=== PATIENT | male | born 1950 | race Caucasian/White ===

== ENCOUNTER 2017-03-07 12:13 | Observation (INO) | payer OTHER ==
[~2017-03-07] VITALS: Ht 172.7 cm; Wt 81.6 kg
[~2017-03-07 12:13] MED LIST: AMIT10TA13; ATOR10 PO; LOSA25TA31 PO; ZOLP10TA3
[2017-03-07 12:18] VITALS: BP 111/60; PULSE 66; RESP 16; TEMP 98.4; O2SAT 97
[2017-03-07] MEDS ORDERED: ASPI81CH7 CHEW (12:46)
[2017-03-07] MEDS ORDERED: LOSA100T PO (12:46)
[2017-03-07] MEDS ORDERED: TAMS0.4C4 PO (12:46)
[2017-03-07] MEDS ORDERED: SODIUM CHLOR 0.9% 1000 ML INJ 1,000 ML IV SCH (12:47)
--- NOTE | 2017-03-07 12:51 | PD ---
HPI Chief Complaint: Abdominal Pain Time Seen by Provider: 12:38 Travel History International Travel<30 days: No Contact w/Intl Traveler<30days: [place] Country Traveled to: [place] Traveled to known affect area: No History of Present Illness HPI 66-year-old male with history of hypertension presents for evaluation of right upper quadrant abdominal pain. Symptoms started 5 days ago. The pain is a sharp pain which is constant but it is worse with meals. Pepto-Bismol seems to help with his pain. He endorses nausea, chills, sweats. He denies vomiting, diarrhea, chest pain or shortness of breath. He has never had this sort of pain before. He has no other Complaints at this time. [facility] Past Medical History Cancer: Yes (PROSTATE WITH RADIATION) High Cholesterol: Yes Hypertension: Yes Migraines: Yes Social History Alcohol Use: No Tobacco Use: No Substance Use: No Allergies-Medications (Allergen,Severity, Reaction): Coded Allergies: No Known Allergies (Verified , 03/07/17) Reported Meds & Prescriptions Reported Meds & Active Scripts Active Reported Aspirin Children's (Aspirin) 81 Mg Chew 81 Mg CHEW DAILY Tamsulosin (Tamsulosin HCl) 0.4 Mg Cap 0.4 Mg PO HS Losartan (Losartan Potassium) 100 Mg Tab 100 Mg PO DAILY Review of Systems Except as stated in HPI: all other systems reviewed are Neg Physical Exam Narrative GENERAL: Well-developed well-nourished male in no acute distress SKIN: Warm and dry. HEAD: Atraumatic. Normocephalic. EYES: Pupils equal and round. No scleral icterus. No injection or drainage. ENT: No nasal bleeding or discharge. Mucous membranes pink and moist. NECK: Trachea midline. No JVD. CARDIOVASCULAR: Regular rate and rhythm. No murmur appreciated. RESPIRATORY: No accessory muscle use. Clear to auscultation. Breath sounds equal bilaterally. GASTROINTESTINAL: Abdomen soft, focal right upper quadrant tenderness to palpation without guarding, positive Trujillo's. No epigastric or left upper quadrant tenderness. Normoactive bowel sounds in all 4 quadrants. MUSCULOSKELETAL: No obvious deformities. No clubbing. No cyanosis. No edema. NEUROLOGICAL: Awake and alert. No obvious cranial nerve deficits. Motor grossly within normal limits. Normal speech. PSYCHIATRIC: Appropriate mood and affect; insight and judgment normal. Data Data Last Documented VS Vital Signs Date Time Temp Pulse Resp B/P Pulse Ox O2 Delivery O2 Flow Rate FiO2 03/07/17 13:54 51 16 103/62 98 Room Air 03/07/17 12:18 98.4 Orders Complete Blood Count With Diff (03/07/17 12:47) Comprehensive Metabolic Panel (03/07/17 12:47) Lipase (03/07/17 12:47) Urinalysis - C+S If Indicated (03/07/17 12:47) Us Abdomen Gallbladder (03/07/17 ) Morphine Inj (Morphine Inj) (03/07/17 13:00) Ondansetron Inj (Zofran Inj) (03/07/17 13:00) Sodium Chlor 0.9% 1000 Ml Inj (Ns 1000 M (03/07/17 12:47) Electrocardiogram (03/07/17 12:47) Al-Mag Hy-Si 40-40-4 Mg/Ml Liq (Mag-Al P (03/07/17 13:00) Lidocaine 2% Viscous (Xylocaine 2% Visco (03/07/17 13:00) Ckmb (Isoenzyme) Profile (03/07/17 12:47) Troponin I (03/07/17 12:47) Admit Order (Ed Use Only) (03/07/17 14:41) NPO (03/07/17 14:41) Piperacil-Tazo 3.375 Gm Premix (Zosyn 3. (03/07/17 14:45) D5-1/2 Ns + Kcl 20 Meq Inj (D5-1/2 Ns + (03/07/17 14:45) Labs Laboratory Tests Test 03/07/17 13:08 White Blood Count 11.2 TH/MM3 Red Blood Count 4.92 MIL/MM3 Hemoglobin 14.5 GM/DL Hematocrit 41.7 % Mean Corpuscular Volume 84.9 FL Mean Corpuscular Hemoglobin 29.4 PG Mean Corpuscular Hemoglobin 34.7 % Concent Red Cell Distribution Width 12.1 % Platelet Count 203 TH/MM3 Mean Platelet Volume 7.4 FL Neutrophils (%) (Auto) 84.1 % Lymphocytes (%) (Auto) 5.8 % Monocytes (%) (Auto) 8.2 % Eosinophils (%) (Auto) 0.4 % Basophils (%) (Auto) 1.5 % Neutrophils # (Auto) 9.5 TH/MM3 Lymphocytes # (Auto) 0.6 TH/MM3 Monocytes # (Auto) 0.9 TH/MM3 Eosinophils # (Auto) 0.0 TH/MM3 Basophils # (Auto) 0.2 TH/MM3 CBC Comment DIFF FINAL Differential Comment Urine Collection Type CLEAN CATCH Urine Color NEHEMIAH Urine Turbidity CLEAR Urine pH 6.0 Urine Specific [place] 1.021 Urine Protein NEG mg/dL Urine Glucose (UA) NEG mg/dL Urine Ketones 15 mg/dL Urine Occult Blood NEG Urine Nitrite NEG Urine Bilirubin NEG Urine Leukocyte Esterase NEG Urine WBC 0-2 /hpf Urine Squamous Epithelial 0-5 /hpf Cells Urine Amorphous Sediment FEW Microscopic Urinalysis Comment CULT NOT INDICATED Urine Collection Time 1308 Sodium Level 138 MEQ/L Potassium Level 4.4 MEQ/L Chloride Level 105 MEQ/L Carbon Dioxide Level 24.3 MEQ/L Anion Gap 9 MEQ/L Blood Urea Nitrogen 17 MG/DL Creatinine 1.40 MG/DL Estimat Glomerular Filtration 51 ML/MIN Rate Random Glucose 139 MG/DL Calcium Level 8.8 MG/DL Total Bilirubin 1.0 MG/DL Aspartate Amino Transf 56 U/L (AST/SGOT) Alanine Aminotransferase 124 U/L (ALT/SGPT) Alkaline Phosphatase 161 U/L Total Creatine Kinase 38 U/L Troponin I LESS THAN 0.02 NG/ML Total Protein 7.5 GM/DL Albumin 3.6 GM/DL Lipase 174 U/L MDM Medical Decision Making Medical Screen Exam Complete: Yes Emergency Medical Condition: Yes Medical Record Reviewed: Yes Differential Diagnosis Symptomatic cholelithiasis, cholecystitis, choledocholithiasis, aortic dissection, pancreatitis, peptic ulcer disease, renal stone Narrative Course 66-year-old male presents with 5 days of right upper quadrant abdominal pain, worse with meals, nausea, chills and diaphoresis. On examination he has focal right upper quadrant tenderness to palpation without guarding. His Idol signs are stable. Plan is for basic lab work, right upper quadrant ultrasound. he will be given a GI cocktail, IV fluids, Zofran and morphine. The patient's lab work reveals elevated liver enzymes, ALP. White count 11.3. Creatinine/BUN are slightly elevated from baseline, likely secondary to decreased appetite/dehydration. Ultrasound reveals: CONCLUSION: 1. Distended gallbladder with mild wall thickening and sludge. No gallstones are visualized. 2. Remainder of the examination is within normal limits. Dr. Patel discussed these findings with surgeon certified professional controller Dr. Crystal who would like the patient admitted to his service, npo. Upon reevaluation the patient feels significantly improved. Diagnosis Primary Impression: Acute cholecystitis Admitting Information Admitting Physician Requests: Admit Jordan Baker Mar 07, 2017 12:51
[2017-03-07] MEDS ORDERED: ONDANSETRON HCL 4 MG/2 ML VIAL IVP ONE (13:00)
[2017-03-07] MEDS ORDERED: LIDOCAINE VISCOUS 2% SOLN 15 ML UDC PO ONE (13:00)
[2017-03-07] MEDS ORDERED: MORPHINE SULFATE 4 MG/ML INJ IV PUSH ONE (13:00)
[2017-03-07] MEDS ORDERED: ALUMINUM/MAGNESIUM/SIMETH 30 ML CUP PO ONE (13:00)
[2017-03-07 13:16] LABS: AUTOMATED NEUTROPHIL # 9.5 TH/MM3 (1.8-7.7); BASOPHIL # 0.2 TH/MM3 (0-0.2); BASOPHIL % 1.5 % (0.0-2.0); EOSINOPHIL % 0.4 % (0.0-4.0); HEMATOCRIT 41.7 % (39.0-51.0); LYMPH % 5.8 % (9.0-44.0); LYMPHOCYTE # 0.6 TH/MM3 (1.0-4.8); MEAN CELL VOLUME 84.9 FL (80.0-100.0); MEAN CORPUSCULAR HEMOGLOBIN 29.4 PG (27.0-34.0); MEAN CORPUSCULAR HGB CONC 34.7 % (32.0-36.0); MONO % 8.2 % (0.0-8.0); NEUT % 84.1 % (16.0-70.0); PLATELET COUNT 203 TH/MM3 (150-450); RED BLOOD COUNT 4.92 MIL/MM3 (4.50-5.90); RED CELL DISTRIBUTION WIDTH 12.1 % (11.6-17.2); WHITE BLOOD COUNT 11.2 TH/MM3 (4.0-11.0)
[2017-03-07 13:17] LABS: BLOOD, URINE NEG (NEG); GLUCOSE,URINE NEG (NEG); KETONE, URINE 15 mg/dL (NEG); NITRITE,URINE NEG (NEG)
[2017-03-07 13:22] LABS: METHOD OF COLLECTION CLEAN CATCH
[2017-03-07 13:23] LABS: URINE COLOR AMBER (YELLW/STRAW)
[2017-03-07 13:24] LABS: COMMENT (UR) CULT NOT INDICATED; COMMENT2 (UR) MUCOUS PRESENT; CULTURE IF INDICATED CULT NOT INDICATED; SQUAMOUS EPITHELIAL CELL URINE 0-5 /hpf (0-5); WBC, URINE 0-2 /hpf (0-5)
[2017-03-07 13:29] LABS: HEMO FLAGS DIFF FINAL
[2017-03-07 13:30] LABS: CHLORIDE 105 MEQ/L (98-107); POTASSIUM 4.4 MEQ/L (3.5-5.1); SODIUM (NA) 138 MEQ/L (136-145)
[2017-03-07 13:34] LABS: ANION GAP 9 MEQ/L (5-15); BICARBONATE 24.3 MEQ/L (21.0-32.0); BLOOD UREA NITROGEN 17 MG/DL (7-18)
[2017-03-07 13:37] LABS: ALT (GPT) 124 U/L (12-78); AST (GOT) 56 U/L (15-37); GLOMERULAR FILTRATION RATE 51 ML/MIN (>89)
[2017-03-07 13:40] LABS: ALKALINE PHOSPHATASE 161 U/L (45-117)
[2017-03-07 13:45] LABS: CREATINE KINASE 38 U/L (39-308)
[2017-03-07 13:54] VITALS: BP 103/62; PULSE 51; RESP 16; O2SAT 98
--- NOTE | 2017-03-07 14:21 | RADRPT ---
EXAM DATE/TIME: 03/07/2017 13:29 [place] COMPARISON: No previous studies available for comparison. INDICATIONS : Right upper quadrant pain. MEDICAL HISTORY : Hypercholesterolemia. Hypertension. Migraines. Prostate cancer. Radiation therapy. SURGICAL HISTORY : None. ENCOUNTER: Initial ACUITY: 4-6 days PAIN SCORE: 5/10 LOCATION: Right upper quadrant MEASUREMENTS: LIVER: 17.3 cm length COMMON DUCT: 5 mm RIGHT KIDNEY: 11.5 x 4.8 x 6.0 cm FINDINGS: LIVER: Normal echotexture without focal lesion or ductal dilatation. COMMON DUCT: No intraluminal mass or stone visualized. GALLBLADDER: Gallbladder is distended and contains sludge. There is mild wall thickening. No pericholecystic fluid is present. Sonographic Trujillo sign is negative. PANCREAS: The visualized portions are within normal limits. RIGHT KIDNEY: No evidence of hydronephrosis, stone, or mass. CONCLUSION: 1. Distended gallbladder with mild wall thickening and sludge. No gallstones are visualized. 2. Remainder of the examination is within normal limits. Christos Gorman MD on March 07, 2017 at 14:18 Board Certified Radiologist. This report was verified electronically.
--- NOTE | 2017-03-07 14:37 | PD ---
Physical Exam Narrative I, Dr. Patel, have reviewed the advance practice practitioner's documentation and am in agreement, met with the patient face to face, made the diagnosis, and the medical decision making was done by me. *My assessment and Findings: Acute cholecystitis vs. cholelithiasis vs. pancreatitis 66yo M with PMH of HTN here with complaint of RUQ pain for 5 days. States pain is there immediately after he eats or drinks. [place] warm last night but no documented fever. Denies any nausea or vomiting or diarrhea. Denies any surgery. Labs reviewed, mild leukocytosis at 11.2. Elevated liver enzymes at AST 56, ALT 124, Alk phos 161. Normal bilirubin at 1.0. Troponin negative. US gallbladder showed distended gallbladder with mild wall thickening and sludge. No gallstones are visualized. Discussed with Dr. Crystal and admitted to his service. Recommend NPO, IV zosyn, IVF. Pt reevaluated at bedside after morphine and pain has resolved. Data Data Last Documented VS Vital Signs Date Time Temp Pulse Resp B/P Pulse Ox O2 Delivery O2 Flow Rate FiO2 03/07/17 13:54 51 16 103/62 98 Room Air 03/07/17 12:18 98.4 Orders Complete Blood Count With Diff (03/07/17 12:47) Comprehensive Metabolic Panel (03/07/17 12:47) Lipase (03/07/17 12:47) Urinalysis - C+S If Indicated (03/07/17 12:47) Us Abdomen Gallbladder (03/07/17 ) Morphine Inj (Morphine Inj) (03/07/17 13:00) Ondansetron Inj (Zofran Inj) (03/07/17 13:00) Sodium Chlor 0.9% 1000 Ml Inj (Ns 1000 M (03/07/17 12:47) Electrocardiogram (03/07/17 12:47) Al-Mag Hy-Si 40-40-4 Mg/Ml Liq (Mag-Al P (03/07/17 13:00) Lidocaine 2% Viscous (Xylocaine 2% Visco (03/07/17 13:00) Ckmb (Isoenzyme) Profile (03/07/17 12:47) Troponin I (03/07/17 12:47) Admit Order (Ed Use Only) (03/07/17 14:41) NPO (03/07/17 14:41) Piperacil-Tazo 3.375 Gm Premix (Zosyn 3. (03/07/17 14:45) D5-1/2 Ns + Kcl 20 Meq Inj (D5-1/2 Ns + (03/07/17 14:45) Labs Laboratory Tests Test 03/07/17 13:08 White Blood Count 11.2 TH/MM3 Red Blood Count 4.92 MIL/MM3 Hemoglobin 14.5 GM/DL Hematocrit 41.7 % Mean Corpuscular Volume 84.9 FL Mean Corpuscular Hemoglobin 29.4 PG Mean Corpuscular Hemoglobin 34.7 % Concent Red Cell Distribution Width 12.1 % Platelet Count 203 TH/MM3 Mean Platelet Volume 7.4 FL Neutrophils (%) (Auto) 84.1 % Lymphocytes (%) (Auto) 5.8 % Monocytes (%) (Auto) 8.2 % Eosinophils (%) (Auto) 0.4 % Basophils (%) (Auto) 1.5 % Neutrophils # (Auto) 9.5 TH/MM3 Lymphocytes # (Auto) 0.6 TH/MM3 Monocytes # (Auto) 0.9 TH/MM3 Eosinophils # (Auto) 0.0 TH/MM3 Basophils # (Auto) 0.2 TH/MM3 CBC Comment DIFF FINAL Differential Comment Urine Collection Type CLEAN CATCH Urine Color NEHEMIAH Urine Turbidity CLEAR Urine pH 6.0 Urine Specific [place] 1.021 Urine Protein NEG mg/dL Urine Glucose (UA) NEG mg/dL Urine Ketones 15 mg/dL Urine Occult Blood NEG Urine Nitrite NEG Urine Bilirubin NEG Urine Leukocyte Esterase NEG Urine WBC 0-2 /hpf Urine Squamous Epithelial 0-5 /hpf Cells Urine Amorphous Sediment FEW Microscopic Urinalysis Comment CULT NOT INDICATED Urine Collection Time 1308 Sodium Level 138 MEQ/L Potassium Level 4.4 MEQ/L Chloride Level 105 MEQ/L Carbon Dioxide Level 24.3 MEQ/L Anion Gap 9 MEQ/L Blood Urea Nitrogen 17 MG/DL Creatinine 1.40 MG/DL Estimat Glomerular Filtration 51 ML/MIN Rate Random Glucose 139 MG/DL Calcium Level 8.8 MG/DL Total Bilirubin 1.0 MG/DL Aspartate Amino Transf 56 U/L (AST/SGOT) Alanine Aminotransferase 124 U/L (ALT/SGPT) Alkaline Phosphatase 161 U/L Total Creatine Kinase 38 U/L Troponin I LESS THAN 0.02 NG/ML Total Protein 7.5 GM/DL Albumin 3.6 GM/DL Lipase 174 U/L MDM Supervised Visit with [facility]: Yes Diagnosis Primary Impression: Acute cholecystitis Admitting Information Admitting Physician Requests: it Rhonda Patel DO Mar 07, 2017 14:37
[2017-03-07] MEDS ORDERED: D5-1/2 NS + KCL 20 MEQ INJ 1,000 ML IV SCH (14:45)
[2017-03-07] MEDS ORDERED: PIPERACIL-TAZO 3.375 GM PREMIX 50 ML IV ONE (14:45)
[2017-03-07 16:14] VITALS: BP 106/70; PULSE 56; RESP 18; O2SAT 98
--- NOTE | 2017-03-07 17:24 | HHI.HP ---
cc: Hernando Crystal MD HPI Service General Surgery Primary Care Physician Ant Guevara MD Admission Diagnosis Acute cholecystitis Chief Complaint: Abdominal pain with associated nausea. History of Present Illness This is a 66-year-old male with a past medical history prostate cancer, hypercholesterolemia, hypertension and migraines. The patient's reports a 4-5 day right upper quadrant pain associated with eating. He reports that the pain is constant and worse with meals. He has never had pain like this before. He made an appointment with his primary care physician but the pain was so severe this morning he came to the emergency department. A ultrasound of the gallbladder was obtained which showed a distended gallbladder with gallbladder wall thickening and sludge; no gallstones visualized. A General Surgery admission has been requested. Review of Systems Constitutional: COMPLAINS OF: Chills, Change in appetite, DENIES: Fever Endocrine: DENIES: Polydipsia, Polyuria, Polyphagia Eyes: DENIES: Diplopia Ears, nose, mouth, throat: DENIES: Hearing loss Respiratory: DENIES: Cough Cardiovascular: DENIES: Chest pain Gastrointestinal: COMPLAINS OF: Abdominal pain, Nausea, DENIES: Diarrhea, Vomiting Genitourinary: DENIES: Urinary frequency Musculoskeletal: DENIES: Muscle aches Integumentary: DENIES: Abnormal pigmentation Hematologic/lymphatic: DENIES: Bruising Immunologic/allergic: DENIES: Eczema Neurologic: DENIES: Headache, Localized weakness Psychiatric: DENIES: Mood changes, Depression, Hallucinations Past Family Social History Past Medical History Prostate cancer with radiation Hypercholesterolemia Hypertension Migraines Past Surgical History Removal of skin lesions Reported Medications Aspirin Tamsulosin Losartan Multivitamin Allergies: Coded Allergies: No Known Allergies (Verified , 03/07/17) Active Ordered Medications Current Medications Medications (Trade) Dose Ordered Sig/Hanny Route Start Time Stop Time Status Last Admin (D5-/ NS + KCl 20 Meq Inj) 1,000 ml @ 125 mls/hr Q8H IV 03/07/17 14:45 03/07/17 15:13 Family History Mother had gallbladder removed Social History Denies tobacco use Denies EtOH use Denies illicit drug use Physical Exam Vital Signs Vital Signs Date Time Temp Pulse Resp B/P Pulse Ox O2 Delivery O2 Flow Rate FiO2 03/07/17 16:14 56 18 106/70 98 Room Air 03/07/17 13:54 51 16 103/62 98 Room Air 03/07/17 12:18 98.4 66 16 111/60 97 Physical Exam GENERAL: 66-year-old male resting in bed in no acute distress. SKIN: Warm and dry. HEAD: Atraumatic. Normocephalic. EYES: Pupils equal and round. No scleral icterus. No injection or drainage. ENT: No nasal bleeding or discharge. Mucous membranes pink and moist. NECK: Trachea midline. CARDIOVASCULAR: Regular rate and rhythm. RESPIRATORY: No accessory muscle use. Clear to auscultation. Breath sounds equal bilaterally. GASTROINTESTINAL: Abdomen soft, obese; tenderness with palpation in RUQ. No visible scars on abdomen. MUSCULOSKELETAL: Extremities without clubbing, cyanosis, or edema. No obvious deformities. NEUROLOGICAL: Awake and alert. No obvious cranial nerve deficits. Motor grossly within normal limits. Five out of 5 muscle strength in the arms and legs. Normal speech. PSYCHIATRIC: Appropriate mood and affect; insight and judgment normal. Laboratory Laboratory Tests Test 03/07/17 13:08 White Blood Count 11.2 Red Blood Count 4.92 Hemoglobin 14.5 Hematocrit 41.7 Mean Corpuscular Volume 84.9 Mean Corpuscular Hemoglobin 29.4 Mean Corpuscular Hemoglobin 34.7 Concent Red Cell Distribution Width 12.1 Platelet Count 203 Mean Platelet Volume 7.4 Neutrophils (%) (Auto) 84.1 Lymphocytes (%) (Auto) 5.8 Monocytes (%) (Auto) 8.2 Eosinophils (%) (Auto) 0.4 Basophils (%) (Auto) 1.5 Neutrophils # (Auto) 9.5 Lymphocytes # (Auto) 0.6 Monocytes # (Auto) 0.9 Eosinophils # (Auto) 0.0 Basophils # (Auto) 0.2 CBC Comment DIFF FINAL Differential Comment Urine Collection Type CLEAN CATCH Urine Color NEHEMIAH Urine Turbidity CLEAR Urine pH 6.0 Urine Specific [place] 1.021 Urine Protein NEG Urine Glucose (UA) NEG Urine Ketones 15 Urine Occult Blood NEG Urine Nitrite NEG Urine Bilirubin NEG Urine Leukocyte Esterase NEG Urine WBC 0-2 Urine Squamous Epithelial 0-5 Cells Urine Amorphous Sediment FEW Microscopic Urinalysis Comment CULT NOT INDICATED Urine Collection Time 1308 Sodium Level 138 Potassium Level 4.4 Chloride Level 105 Carbon Dioxide Level 24.3 Anion Gap 9 Blood Urea Nitrogen 17 Creatinine 1.40 Estimat Glomerular Filtration 51 Rate Random Glucose 139 Calcium Level 8.8 Total Bilirubin 1.0 Aspartate Amino Transf 56 (AST/SGOT) Alanine Aminotransferase 124 (ALT/SGPT) Alkaline Phosphatase 161 Total Creatine Kinase 38 Troponin I LESS THAN 0.02 Total Protein 7.5 Albumin 3.6 Lipase 174 Result Diagram: 03/07/17 1308 03/07/17 1308 Imaging Last 48 hours Impressions Gall Bladder Ultrasound 03/07/17 0000 Signed Impressions: Service Date/Time: Tuesday, March 07, 2017 13:29 - CONCLUSION: 1. Distended gallbladder with mild wall thickening and sludge. No gallstones are visualized. 2. Remainder of the examination is within normal limits. Christos Gorman MD Assessment and Plan Assessment and Plan 66-year-old male with acute cholecystitis -IV fluids -Zosyn -NPO Attending Note - Dr. Crystal Discussed with patient; his abdominal discomfort is less than earlier today Also has an umbilical hernia; will fix this simultaneously GAR discussed with patient; may discharge home tomorrow and perform surgery Monday Repeat LFT's in AM. Discussed Condition With Dr. Crystal Mr. and Nola Joshua Mar 07, 2017 17:24 Hernando Crystal MD Mar 07, 2017 20:44
[2017-03-07] MEDS: SODIUM CHLOR 0.9% 1000 ML INJ 1,000 ML IV SCH (18:53)
[2017-03-07] MEDS ORDERED: METOCLOPRAMIDE HCL 10 MG/2 ML VIAL IV PRN (19:00)
[2017-03-07] MEDS ORDERED: SODIUM CHLORIDE 0.9% FLUSH 10 ML FLUSH IV FLUSH PRN (19:00)
[2017-03-07 20:00] VITALS: BP 142/73; PULSE 56; RESP 20; TEMP 99; O2SAT 97
[2017-03-07] MEDS: SODIUM CHLORIDE 0.9% FLUSH 10 ML FLUSH IV FLUSH SCH (21:00)
[2017-03-07] MEDS: PIPERACIL-TAZO 3.375 GM PREMIX 50 ML IV SCH (22:35)
[2017-03-08] VITALS: BP 90/51; PULSE 69; RESP 20; TEMP 101.8; O2SAT 96
[2017-03-08 01:02] VITALS: TEMP 100
[2017-03-08] MEDS: SODIUM CHLOR 0.9% 1000 ML INJ 1,000 ML IV SCH ×2 (02:36→09:21)
[2017-03-08 04:00] VITALS: BP 101/56; PULSE 57; RESP 20; TEMP 97.6; O2SAT 96
[2017-03-08] MEDS: PIPERACIL-TAZO 3.375 GM PREMIX 50 ML IV SCH (06:12)
[2017-03-08 06:37] LABS: INDIRECT BILIRUBIN 0.5 MG/DL (0.0-0.8); TOTAL BILIRUBIN ADULT 0.7 MG/DL (0.2-1.0)
[2017-03-08 08:00] VITALS: BP 115/68; PULSE 57; RESP 20; TEMP 98.2; O2SAT 96
[2017-03-08] MEDS ORDERED: PANTOPRAZOLE SODIUM 40 MG VIAL IV SCH (09:00)
[2017-03-08] MEDS: SODIUM CHLORIDE 0.9% FLUSH 10 ML FLUSH IV FLUSH SCH (09:20)
--- NOTE | 2017-03-08 11:34 | EKG ---
Date Performed: 03/07/2017 Time Performed: 13:02:02 PTAGE: 66 years EKG: SINUS BRADYCARDIA PROBABLE INFERIOR MYOCARDIAL INFARCTION ABNORMAL ECG PREVIOUS TRACING : 10/06/2012 12.56 DOCTOR: Lopez Doss Interpretating Date/Time 03/08/2017 11:34:07
[2017-03-08 12:00] VITALS: BP 134/81; PULSE 56; RESP 20; TEMP 98.2; O2SAT 97
== END 2017-03-08 12:39 | disposition home or self-care (01) ==
LOC: PHED 12:13 → INTOOBSV 14:43 → PHEDA 14:43 → PH3B 15:55
PROVIDERS: ADMIT Surgery Trauma Surgery; ATTEND Surgery Trauma Surgery
DX: K81.0 Acute cholecystitis (principal); K82.8 Other specified diseases of gallbladder; K42.9 Umbilical hernia without obstruction or gangrene; E86.0 Dehydration; R00.1 Bradycardia, unspecified; R94.31 Abnormal electrocardiogram [ECG] [EKG]; R74.8 Abnormal levels of other serum enzymes; I10 Essential (primary) hypertension; E78.00 Pure hypercholesterolemia, unspecified; Z85.46 Personal history of malignant neoplasm of prostate; Z92.3 Personal history of irradiation
CPT/HCPCS: 76705; 80053; 80076; 81001; 82550; 83690; 84484; 85025; 93005; 96361; 96365; 96375; 99285; C9113; G0378; J2270; J2405; J2543; J3480; J7030

== ENCOUNTER → 2017-03-10 | Day surgery (SDC) | payer OTHER ==
[~2017-03-10] VITALS: Ht 172.7 cm; Wt 78.0 kg
[~2017-03-10] MED LIST changes: +ACETAMINOPHEN 1000 MG/100 ML VIAL IV SCH; -AMIT10TA13; +ASPI81CH7 CHEW; -ATOR10 PO; +BUPIVACAINE/EPINEPHRINE 0.25% PF 30 ML VIAL ONE; +CHLORHEXIDINE GLUCONATE 2 % 1 PACK (2 CLOTHS) TOPICAL PRN; +FAMOTIDINE 20 MG/2 ML VIAL ONE; +INSULIN HUMAN REGULAR 1,000 UNITS/10 ML VIAL SQ PRN; +KETOROLAC TROMETHAMINE 60 MG/2 ML (IM) VIAL IM ONE; +LACTATED RINGER'S 1000 ML IV PRN; +LOSA100T PO; -LOSA25TA31 PO; +METOPROLOL TARTRATE 25 MG TAB PO PRN; +MIDAZOLAM HCL 2 MG/2 ML VIAL ONE; +NEOSTIGMINE 3 MG/3 ML SYR IV ONE; +ONDANSETRON HCL 4 MG/2 ML VIAL IV PUSH ONE; +POVIDONE IODINE 5% (ANTISEPSIS KIT) 4 APPLICATIONS EACH NARE PRN; +PROPOFOL 200 MG/20 ML AMP IV ONE; +SODIUM CHLORID 0.9% 500 ML IV PRN; +TAMS0.4C4 PO; +VANCOMYCIN HCL 1000 MG ON-CALL/NS 250 ML IV SCH; +VANCOMYCIN HCL 1000 MG VIAL ONE; -ZOLP10TA3; +ceFAZolin 1,000 MG/NS 100 ML IV SCH; +ceFAZolin INJ 1,000 MG VIAL ONE; +fentaNYL CITRATE 250 MCG/5 ML AMP ONE
[2017-03-10 06:52] VITALS: BP 165/86; PULSE 51; RESP 18; TEMP 97.7; O2SAT 98
[2017-03-10 09:44] VITALS: PULSE 48
--- NOTE | 2017-03-10 10:22 | MP ---
cc: SUSANA DUNCAN M.D., JON C. M.D. DATE OF SURGERY: 03/10/2017 PROCEDURE 1. Laparoscopic cholecystectomy. 2. Reduction and primary repair of incarcerated umbilical hernia. PREOPERATIVE DIAGNOSIS 1. Acute cholecystitis. 2. Incarcerated umbilical hernia. POSTOPERATIVE DIAGNOSIS 1. Acute cholecystitis. 2. Incarcerated umbilical hernia. ANESTHESIA General endotracheal. SURGEON Bonilla. ESTIMATED BLOOD LOSS Less than 50 mL. FLUIDS 1000 mL crystalloid. COMPLICATIONS None. DRAINS None. SPECIMEN Gallbladder and stones to pathology. PROCEDURE IN DETAIL The patient was taken to the operating room and placed on the operating table in the supine position. After an adequate level of general endotracheal anesthesia was achieved the abdomen was shaved, prepped and draped. A timeout was taken confirming the correct patient, site and procedure to be performed. Skin and subcutaneous tissue was infiltrated with local anesthetic and an incision made in the umbilicus and carried through the fascia sharply. Preperitoneal fat was reduced into the abdominal cavity. This was not able to be reduced until the incision was made. A 12 mm balloon trocar was then inserted after directly visualizing the peritoneal cavity. The balloon was inflated and the abdomen insufflated. The patient was placed in reverse Trendelenburg position. The upper abdomen was visualized. Three 5 mm trocars were then placed with the first to the right of the falciform ligament and second and third in the right subcostal region. All entered the abdominal cavity under direct vision uneventfully. The fundus of the gallbladder was then grasped and retracted upward. Omental tissue was taken down off of the gallbladder with both blunt dissection and electro-dissection. When this was accomplished the cystic duct infundibular junction was circumferentially dissected. The cystic artery was extremely small in this individual and after cauterizing it a single clip was placed. Another single 5 mm clip was placed on the omentum to stop persistent oozing of the dissected omentum. The cystic duct was doubly clipped distally, singly clipped on the gallbladder side and divided. The gallbladder was dissected off the liver bed with electro-dissection. The gallbladder was placed into an EndoCatch device and removed via the umbilical port while observing via the 5 mm upper midline trocar. During dissection the gallbladder was entered twice and most of the internal contents were aspirated. After removal of the gallbladder the camera was once again placed in through the umbilical port and the upper abdomen re-visualized. The liver bed was seen to be clean and dry. The cystic duct stump was clean and dry as well. With hemostasis assured all irrigation was aspirated from the abdominal cavity. Insufflation was discontinued and the upper abdominal trocars removed under direct vision. No bleeding was noted from the trocar sites during desufflation. The laparoscope and umbilical port were removed. The umbilicus was then repaired with 0 Prolene suture in a simple interrupted fashion. The preperitoneal fat was completely reduced into the abdominal cavity and additional 0 Vicryl suture was placed to complete the repair superiorly. When this was completed all trocar sites were closed with 4-0 Vicryl suture in an interrupted buried fashion. The upper trocar sites were dressed with Steri-Strips and the umbilical site was dressed with 4x4 and Tegaderm. The patient was extubated and taken back to the recovery room in stable condition; he tolerated the procedure well. MD ANA Khalil/BT /9:58 AM /10:07 AM
--- NOTE | 2017-03-10 11:12 | HHI.PR ---
cc: Hernando Crystal MD Immediate Post Op Note Procedure Date: Mar 10, 2017 Pre Op Diagnosis: 1. Acute cholecystitis 2. Incarcerated umbilical hernia Post Op Diagnosis: Same Surgeon: Hernando Crystal Log Hooker(s): Janey Hernandez CST Procedure: Laparoscopic cholecystectomy Reduction and primary repair incarcerated umbilical hernia Complications: None Specimen(s) removed: Gallbladder to pathology Estimated blood loss: <50 ml Anesthesia: General Drains: None IVF (1000 ml) Patient to: PACU Patient Condition: Good Date/Time of Procedure: SEE SURGICAL CARE RECORD Hernando Crystal MD Mar 10, 2017 11:12
[2017-03-10 11:30] VITALS: BP 130/70; PULSE 53; RESP 16; TEMP 97.6; O2SAT 98
== END | disposition home or self-care (01) ==
LOC: PHSDC 06:02
PROVIDERS: ATTEND Surgery Trauma Surgery
DX: K81.2 Acute cholecystitis with chronic cholecystitis (principal); K42.0 Umbilical hernia with obstruction, without gangrene; I10 Essential (primary) hypertension; E78.00 Pure hypercholesterolemia, unspecified; G43.909 Migraine, unspecified, not intractable, without status migrainosus; Z85.46 Personal history of malignant neoplasm of prostate; Z92.3 Personal history of irradiation; Z79.82 Long term (current) use of aspirin; Z79.899 Other long term (current) drug therapy
CPT/HCPCS: 00790; 47562; 49587; 88304; J0131; J0690; J1885; J2250; J2405; J2710; J3010; J3370; J7050; J7120